=== PATIENT | male | born 1985 | race Caucasian/White ===

== ENCOUNTER 2019-03-01 09:10 | Emergency (ER) | payer SELFPAY ==
[2019-03-01 09:36] VITALS: BP 132/67
[2019-03-01] MEDS ORDERED: Ondansetron ODT TAB* 4 MG PO ONE (10:07)
--- NOTE | 2019-03-01 10:10 | UC ---
Headache HPI - HPI Summary HPI Summary: 33 yo male with history of migraines reports he has had a biltemporal GONZALEZ x 5-7 days throbbing nausea no vomiting no recent trauma his typical migraine starts with an aura and lasts hours has never had a headache like this no aura minimal relief with OTCs has had migraines since a young teen remote hx of concussion - History Of Current Complaint Chief Complaint: UCHeadache Stated Complaint: HEADACHE, AND NAUSEA Time Seen by Provider: 03/01/19 09:58 Hx Obtained From: Patient Onset/Duration: Gradual Onset, Lasting Days Onset Of Symptoms: Sudden Initially Headache Was: Severe Pain Intensity: 8 Pain Scale Used: 0-10 Numeric Timing: Constant Character: Throbbing Location of Headache: Temporal - bitemporal Aggravating Factor(s): Nothing Allevating Factor(s): Nothing Associated Signs And Symptoms: Positive: Nausea. Negative: Dizziness, Seizure, Vomiting, Sinus Pressure, Fever, Neck Pain, Neck Stiffness, Decreased LOC, Visual Changes - Allergies/Home Medications Allergies/Adverse Reactions: Allergies Allergy/AdvReac Type Severity Reaction Status Date / Time No Known Allergies Allergy Verified 03/01/19 09:27 Home Medications: Home Medications Aspirin TAB* [Aspirin 325 MG TAB*] 325 mg PO ONCE 03/01/19 [History Confirmed ] PMH/Surg Hx/FS Hx/Imm Hx Previously Healthy: Yes Neurological History: Migraine - Surgical History Surgical History: Yes Surgery Procedure, Year, and Place: broken nose repair 2013. appendectomy - Family History Known Family History: Positive: Non-Contributory Negative: Cardiac Disease, Hypertension, Diabetes - Social History Alcohol Use: Occasionally Substance Use Type: None Smoking Status (MU): Never Smoked Tobacco Review of Systems All Other Systems Reviewed And Are Negative: Yes Constitutional: Positive: Negative Skin: Positive: Negative Eyes: Positive: Photophobia ENT: Positive: Negative Respiratory: Positive: Negative Cardiovascular: Positive: Negative Gastrointestinal: Positive: Negative Genitourinary: Positive: Negative Motor: Positive: Negative Neurovascular: Positive: Negative Musculoskeletal: Positive: Negative Neurological: Positive: Headache Psychological: Positive: Negative Physical Exam Triage Information Reviewed: Yes Appearance: Well-Appearing, No Pain Distress, Well-Nourished Vital Signs: Initial Vital Signs Temp 99.1 F 03/01/19 09:29 Pulse 60 03/01/19 09:29 Resp 18 03/01/19 09:29 BP 132/67 03/01/19 09:29 Pulse Ox 97 03/01/19 09:29 Vital Signs Reviewed: Yes Eyes: Positive: Conjunctiva Clear, Other: - fundi benign, EOMI. PERRL ENT: Positive: Hearing grossly normal. Negative: Nasal congestion, Nasal drainage, Trismus, Muffled voice, Dental tenderness Neck: Positive: Supple, Nontender, No Lymphadenopathy Respiratory: Positive: Chest non-tender, Lungs clear, Normal breath sounds Cardiovascular: Positive: RRR, No Murmur Bowel Sounds: Positive: Present Musculoskeletal: Positive: ROM Intact, No Edema Neurological: Positive: Alert Psychological Exam: Normal Skin: Positive: Rashes Diagnostics - Radiology No standard instances Radiology Interpretation Completed By: Radiologist Summary of Radiographic Findings: neg CT Re-Evaluation - Re-Evaluation First Eval Change: Improved - GONZALEZ 4 Headache Course/Dx - Differential Dx/Diagnosis Provider Diagnosis: Headache, Status migrainosus Discharge - Sign-Out/Discharge Documenting (check all that apply): Patient Departure All imaging exams completed and their final reports reviewed: No Studies - Discharge Plan Condition: Stable Disposition: HOME Patient Education Materials: Acute Headache (ED) Referrals: Channing Monsalve MD [Medical Doctor] - As Soon As Possible Additional Instructions: recheck for new or worsening symptoms - Billing Disposition and Condition Condition: STABLE Disposition: Home
[2019-03-01] MEDS ORDERED: Ketorolac INJ* 30 MG/ML 1 ML VIAL IM ONE (10:58)
== END 2019-03-01 11:50 | disposition home or self-care (01) ==
LOC: UCEAST 09:10
DX: G43.901 Migraine, unspecified, not intractable, with status migrainosus (principal)
CPT/HCPCS: 70450; 96372; 99202; A9270-GY; G0463; J1885